=== PATIENT | male | born 1970 | race Caucasian/White ===

== ENCOUNTER 2024-04-30 14:13 | Outpatient (CLI) | payer OTHER, SELFPAY ==
--- NOTE | 2024-04-30 14:48 | MR_ITS ---
WS: [id number] MRI LEFT SHOULDER NONCONTRAST TECHNIQUE: Sagittal T2, coronal T1, T2 and proton density imaging. Axial gradient PDE imaging. CLINICAL INFORMATION: LEFT SHOUDLER PAIN AND WEAKNESS COMPARISON: None. FINDINGS: Moderate degenerative arthritis AC joint with moderate downsloping acromion. Slight subacromial spurr ing. Narrowing of the subacromial space with impingement on the distal supraspinatus. Small amount of subacromial and subdeltoid fluid. Small tear at the supraspinatus insertion. No tendon retraction. T endinopathy distal supraspinatus and infraspinatus. Small tear at the infraspinatus insertion. Normal teres minor. Normal subscapularis. Biceps tendon appears intact in the bicipital groove. Intra -articular biceps tendon appears intact. Biceps labral anchor appears intact. Normal bone marrow signal in the humeral head and glenoid. MR/MR shoulder LT wo con* [id number] IMPRESSION: 1. Moderate degenerative arthritis at the AC joint with moderate downsloping a cromion. Subacromial spurring with impingement distal supraspinatus. 2. Small amount of subacromial subdeltoid fluid. 3. Insertional tears supraspinatus and infraspinatus. No tendon retraction. 4. Tendinopathy supraspinatus and infraspinatus. 5. Normal biceps tendon in the bicipital groove. 6. Intra-articular biceps tendon appears intact.
== END 2024-04-30 14:14 | disposition home or self-care (01) ==
LOC: RAD 14:14
PROVIDERS: PCP Family Medicine; Visit Provider Nurse Practitioner
DX: Z01.89 Encounter for other specified special examinations (principal); M13.812 Other specified arthritis, left shoulder; R93.6 Abnormal findings on diagnostic imaging of limbs; M75.102 Unspecified rotator cuff tear or rupture of left shoulder, not specified as traumatic
CPT/HCPCS: 73221

== ENCOUNTER → 2024-05-17 10:23 | Outpatient (BNVA) | payer OTHER, SELFPAY | PROVIDERS: PCP Family Medicine; Visit Provider Specialist | DX: M75.112 Incomplete rotator cuff tear or rupture of left shoulder, not specified as traumatic (principal); M19.012 Primary osteoarthritis, left shoulder; M25.812 Other specified joint disorders, left shoulder | CPT/HCPCS: 20610; 73030; 99204; J1100; J2795; J3301 ==